=== PATIENT | female | born 1960 | race Caucasian/White ===

== ENCOUNTER → 2018-06-30 08:34 | Outpatient (CLI) | payer BC, SELFPAY ==
[2018-06-30 12:54] LABS: Absolute Lymphocyte Count 1.46 X10^3/ul (0.83-4.51); Absolute Neutrophil Count 2.5 X10^3/uL (2.0-7.7); Basophil# 0.03 X10^3/uL; Basophil% 0.6 % (0-1); Eosinophil# 0.34 X10^3/uL; Eosinophils% 6.5 % (0-5); Hematocrit 49.3 % (37-47); Hemoglobin 15.9 g/dl (12.0-15.0); Lymphocyte # 1.46 X10^3/ul (4.0); Lymphocyte % 27.9 % (19-41); Mean Corp Hgb Conc 32.3 g/gl (32-36); Mean Corpuscular Hgb 30.5 pg (27.0-32.0); Mean Corpuscular Volume 94.4 fL (81-99); Mean Platelet Vol. 11.5 fl (6.2-12.0); Monocyte# 0.91 X10^3/uL; Monocyte% 17.4 % (0-10); Neutrophil # 2.47 X10^3/uL (2.7-7.7); Platelet Count 184 K/mm3 (150-450); RBC Distribution Width CV 14.3 % (11.6-14.6); RBC Distribution Width SD 48.7 fl (35.1-43.9); Red Blood Count 5.22 M/mm3 (4.2-5.4); White Blood Count 5.2 K/mm3 (4.4-11.0)
[2018-06-30 12:56] LABS: POSITIVE COUNT NO; POSITIVE DIFFERENTIAL NO; POSITIVE MORPHOLOGY NO
[2018-06-30 13:38] LABS: ALB/GLOB Ratio 1.2 RATIO (0.9-2.4); AST(SGOT) 19 U/L (15-37); Alanine Aminotransfer ALT/SGPT 27 U/L (13-56); Albumin, Serum 3.6 g/dL (3.2-5.0); Alkaline Phosphatase 149 U/L (45-117); Anion Gap 10 (5-15); BUN 14 mg/dL (7-18); BUN/Creat Ratio 22.2 RATIO (10-20); Calcium,Total 8.8 mg/dL (8.5-10.1); Chloride 107 mmol/L (98-107); Cholesterol 158 mg/dL (200); Creatinine, Serum 0.63 mg/dL (0.55-1.02); EST Glomerular Filtration Rate 102 mL/min (>60); Est Glom Filt Rate - Afr Amer 124 mL/min (>60); Glucose 84 mg/dL (74-106); High Density Lipoprotein 39 mg/dL; Protein, Total 6.6 g/dL (6.4-8.2); Sodium Level 140 mmol/L (136-145); Thyroid Stim Hormone (TSH) 1.32 uIU/mL (0.358-3.74); Triglycerides 181 mg/dL; Very Low Density Lipoprotein 36 mg/dL (5-40)
== END ==
PROVIDERS: Family Provider Family Medicine; PCP Family Medicine; Visit Provider Family Medicine
DX: I25.10 Atherosclerotic heart disease of native coronary artery without angina pectoris (principal); E78.5 Hyperlipidemia, unspecified; I10 Essential (primary) hypertension
CPT/HCPCS: 36415; 80053; 80061; 84443; 85025

== ENCOUNTER → 2019-01-23 10:52 | Outpatient (CLI) | payer BC, SELFPAY ==
[2016-02-05 17:40] VITALS: BMI 26.4
[2019-01-23 12:44] LABS: Absolute Lymphocyte Count 2.16 X10^3/uL (0.83-4.51); Basophil# 0.03 X10^3/uL; Basophil% 0.4 % (0-1); Eosinophil# 0.22 X10^3/uL; Eosinophils% 2.7 % (0-5); Hemoglobin 16.3 g/dL (12.0-15.0); Lymphocyte # 2.16 X10^3/ul (4.0); Lymphocyte % 26.3 % (19-41); Mean Corp Hgb Conc 32.6 g/dL (32-36); Mean Corpuscular Hgb 30.7 pg (27.0-32.0); Mean Corpuscular Volume 94.2 fL (81-99); Mean Platelet Vol. 11.1 fl (6.2-12.0); Monocyte% 9.8 % (0-10); NRBC Flagged by Analyzer 0 % (0-5); Neutrophil # 4.95 X10^3/uL (2.7-7.7); Neutrophil % 60.3 % (47-70); Platelet Count 220 K/mm3 (150-450); RBC Distribution Width CV 14.2 % (11.6-14.6); RBC Distribution Width SD 49.5 fl (35.1-43.9); Red Blood Count 5.31 M/mm3 (4.2-5.4); White Blood Count 8.2 K/mm3 (4.4-11.0)
[2019-01-23 13:09] LABS: Anion Gap 3 (5-15); BUN 14 mg/dL (7-18); BUN/Creat Ratio 19.8 RATIO (10-20); Calcium,Total 9.8 mg/dL (8.5-10.1); Chloride 109 mmol/L (98-107); Creatinine, Serum 0.71 mg/dL (0.55-1.02); EST Glomerular Filtration Rate 90 mL/min (>60); Est Glom Filt Rate - Afr Amer 108 mL/min (>60); Glucose 93 mg/dL (74-106); Potassium 4.3 mmol/L (3.5-5.1); Sodium Level 141 mmol/L (136-145); T4 Free Direct 0.84 ng/dL (0.76-1.46); Thyroid Stim Hormone (TSH) 1.03 uIU/mL (0.358-3.74)
== END ==
PROVIDERS: Family Provider Family Medicine; PCP Family Medicine; Visit Provider Family Medicine
DX: I25.10 Atherosclerotic heart disease of native coronary artery without angina pectoris (principal); E78.5 Hyperlipidemia, unspecified; Z78.9 Other specified health status
CPT/HCPCS: 36415; 80048; 84439; 84443; 85025

== ENCOUNTER → 2019-03-23 05:50 | Outpatient (CLI) | payer BC, SELFPAY ==
[2019-03-04 12:38] VITALS: BMI 25.7
--- NOTE | 2019-03-23 12:56 | STRESSREP_ITS ---
Stress Test Report Exercise myocardial perfusion stress test. 58-year-old lady with a history of previous coronary artery stenting. Medications include aspirin, Plavix, rosuvastatin, metoprolol. Stress testing. Resting EKG demonstrates normal sinus rhythm with a rate of 68 bpm normal intervals are noted resting blood pressures 148/92 mmHg. Patient exercised according to the regular Kendell protocol for total duration of 7 minutes. The maximum heart rate attained was 141 bpm which was 88% of maximum predicted heart rate. Patient completed 1 minute into stage III of the Kendell protocol. The test was terminated due to the target heart rate being achieved as well as dyspnea. The resting blood pressure was 148/92 with a peak blood pressure 174/90 mmHg rate pressure product was 22,400. Patient maintained sinus rhythm throughout the recording. At rest there were no ST or T wave changes noted suggest ischemia peak exercise upsloping ST changes were noted with no meet the criteria for ischemia. Myocardial perfusion protocol. 11.0 mCi of technetium 99m sestamibi was injected at rest. The patient exercised according to regular Kendell protocol for 7 minutes attaining 88% of maximum predicted heart rate at peak exercise 33.0 mCi of technetium 99m sestamibi was injected stress images were obtained stress and rest images were reconstructed in comparing the short axis vertical long horizontal long axis. Gated images were also obtained Perfusion SPECT analysis: Review of the stress images demonstrate normal uptake of tracer noted in all ar eas of myocardium the resting images similar demonstrate normal uptake of tracer noted in all areas of myocardium. No reversibility is noted suggest ischemia no previous infarct is noted. Gated SPECT analysis: The gated ejection fraction is noted to be 74%. Conclusion: Normal exercise myocardial perfusion stress test at a moderate workload. Preserved ejection fraction. No arrhythmias or angina noted.
== END ==
PROVIDERS: Family Provider Family Medicine; PCP Family Medicine; Referring Provider Internal Medicine Cardiovascular Disease; Visit Provider Internal Medicine Cardiovascular Disease
DX: R07.9 Chest pain, unspecified (principal); Z95.5 Presence of coronary angioplasty implant and graft
CPT/HCPCS: 78452; 93017; A9500; A4216

== ENCOUNTER 2019-09-04 17:10 | Emergency (ER) | payer BC, SELFPAY ==
[2019-03-04 12:38] VITALS: BMI 25.7
[2019-09-04 17:11] VITALS: BP 155/100; PULSE 89; RESP 16; TEMP 36.6; O2SAT 97; BMI 25.7
--- NOTE | 2019-09-04 17:29 | EKG12_ITS ---
Test Reason : SYNCOPE Blood Pressure : / mmHG Vent. Rate : 073 BPM Atrial Rate : 073 BPM P-R Int : 156 ms QRS Dur : 098 ms QT Int : 386 ms P-R-T Axes : 023 053 002 degrees QTc Int : 425 ms Normal sinus rhythm with sinus arrhythmia Possible Inferior infarct , age undetermined Abnormal ECG Confirmed by JULIAN BA, BELEM ([id number]), desk editor RONEL REARDON ([id number]) on 09/08/2019 3:17:14 PM Referred By: ADAL Confirmed By:HOLLY JORDAN MD
--- NOTE | 2019-09-04 17:29 | CT_ITS ---
STUDY: CT BRAIN WITHOUT CONTRAST REASON FOR EXAM: Female, 59 years old. SYNCOPE, HIT HEAD AND NECK ON SATURDAY PAIN SINCE. Hx of heart stents. RADIATION DOSAGE (If Supplied By Facility): CTDIvol = ( 44.99 ) mGy, DLP = ( 762.36 ) mGycm TECHNIQUE: Transaxial CT imaging of the brain was performed without administration of intravenous contrast material. Individualized dose optimization techniques were used for this CT. COMPARISON: No relevant priors. FINDINGS: Normal soft tissue structures. Normal calvarium. Normal size ventricles and extra-axial spaces for the patient''s age. Normal white matter tracts of the cerebral hemispheres. Normal basal ganglia and thalami. Normal brainstem. Normal cerebellum. There is no intracranial hemorrhage. There are no findings of an acute ischemic infarction. Normal visualized paranasal sinuses. CT/Brain/Head without Contrast IMPRESSION: Normal unenhanced CT scan of the brain. Electronically Signed: Moni Winslow MD at 18:06 EDT , Service support ,
--- NOTE | 2019-09-04 17:30 | CT_ITS ---
STUDY: CT CERVICAL SPINE WITHOUT CONTRAST REASON FOR EXAM: Female, 59 years old. SYNCOPE, HIT HEAD AND NECK ON SATURDAY PAIN SINCE. Hx of heart stents. RADIATION DOSAGE (If Supplied By Facility): CTDIvol = ( 18.67 ) mGy, DLP = ( 416.13 ) mGycm TECHNIQUE: High resolution transaxial imaging was performed without contrast material. Sagittal and coronal images were reconstructed. Individualized dose optimization techniques were used for this CT. COMPARISON: None FINDINGS: Normal craniovertebral junction. Normal anterior atlantoaxial articulation. Normal odontoid process. There is reversal of the normal cervical lordosis. Normal vertebral bodies and posterior osseous elements. C2-3: Normal endplates. Normal disc height and morphology. Normal central canal and intervertebral neuroforamina. C3-4: Minor degenerative disc and joint changes without central stenosis or foraminal narrowing. C4-5: Mild disc narrowing and uncovertebral arthrosis. Negative for central stenosis. Mild bilateral foraminal narrowing. C5-6: Degenerative disc narrowing and uncovertebral arthrosis. Mild spinal stenosis and bilateral moderate foraminal narrowing. C6-7: Mild degenerative disc and joint changes without central stenosis or foraminal narrowing. C7-T1: Mild bilateral facet arthrosis without central stenosis or foraminal narrowing. Normal visualized soft tissue structures. CT/Spine Cervical without Contras IMPRESSION: Mild reversal of the usual cervical lordosis with otherwise normal alignment. Negative for acute fracture of the cervical spine. Degenerative disc and joint changes as stated above. Electronically Signed: Moni Winslow MD at 18:12 EDT , Service support ,
[2019-09-04 17:54] LABS: Absolute Lymphocyte Count 2.42 X10^3/uL (0.83-4.51); Absolute Neutrophil Count 4.9 X10^3/uL (2.0-7.7); Basophil# 0.04 X10^3/uL; Basophil% 0.5 % (0-1); Eosinophil# 0.13 X10^3/uL; Eosinophils% 1.6 % (0-5); Hematocrit 47.2 % (37-47); Hemoglobin 15.9 g/dL (12.0-15.0); Lymphocyte # 2.42 X10^3/ul (4.0); Lymphocyte % 29.5 % (19-41); Mean Corp Hgb Conc 33.7 g/dL (32-36); Mean Corpuscular Hgb 31.1 pg (27.0-32.0); Mean Corpuscular Volume 92.4 fL (81-99); Mean Platelet Vol. 10.6 fl (6.2-12.0); Monocyte# 0.71 X10^3/uL; Monocyte% 8.7 % (0-10); NRBC Flagged by Analyzer 0 % (0-5); Neutrophil # 4.86 X10^3/uL (2.7-7.7); Neutrophil % 59.2 % (47-70); Platelet Count 218 K/mm3 (150-450); RBC Distribution Width CV 14.1 % (11.6-14.6); RBC Distribution Width SD 47.6 fl (35.1-43.9); Red Blood Count 5.11 M/mm3 (4.2-5.4); White Blood Count 8.2 K/mm3 (4.4-11.0)
[2019-09-04 18:13] LABS: ALB/GLOB Ratio 1.4 RATIO (0.9-2.4); AST(SGOT) 19 U/L (15-37); Alanine Aminotransfer ALT/SGPT 26 U/L (13-56); Albumin, Serum 3.9 g/dL (3.2-5.0); Alkaline Phosphatase 157 U/L (45-117); Anion Gap 6 (5-15); BUN 15 mg/dL (7-18); BUN/Creat Ratio 22.7 RATIO (10-20); Calcium,Total 9.9 mg/dL (8.5-10.1); Chloride 110 mmol/L (98-107); Creatinine, Serum 0.66 mg/dL (0.55-1.02); EST Glomerular Filtration Rate 97 mL/min (>60); Est Glom Filt Rate - Afr Amer 117 mL/min (>60); Globulin 2.8 g/dL (2.2-4.2); Glucose 91 mg/dL (74-106); Potassium 3.8 mmol/L (3.5-5.1); Protein, Total 6.7 g/dL (6.4-8.2); Sodium Level 142 mmol/L (136-145)
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
[2019-09-04] MEDS: Diphth,Pertuss(Acell),Tet Vac 0.5 ML Vial IM (18:54)
[2019-09-04 19:01] VITALS: BP 170/94; PULSE 75; RESP 18
== END 2019-09-04 19:11 | disposition home or self-care (01) ==
LOC: ED 18:37
PROVIDERS: Emergency Provider Emergency Medicine; PCP Family Medicine
DX: R55 Syncope and collapse (principal); S00.83XA Contusion of other part of head, initial encounter; S00.81XA Abrasion of other part of head, initial encounter; W22.8XXA Striking against or struck by other objects, initial encounter; Y93.9 Activity, unspecified; Y92.9 Unspecified place or not applicable; I10 Essential (primary) hypertension; I25.2 Old myocardial infarction; E78.5 Hyperlipidemia, unspecified; Z79.82 Long term (current) use of aspirin; Z79.899 Other long term (current) drug therapy; F17.200 Nicotine dependence, unspecified, uncomplicated
CPT/HCPCS: 70450; 72125; 80053; 84484; 85025; 90471; 90715; 93005; 99284; J7030; A4216

== ENCOUNTER → 2021-03-31 09:03 | Outpatient (CLI) | payer BC, SELFPAY ==
--- NOTE | 2021-03-31 09:05 | BI_ITS ---
MAMMOGRAPHY - BILATERAL SCREENING REASON FOR EXAM: Female, 60 years old. Routine annual screening examination. PERTINENT HISTORY: Sister with breast cancer. Mother with breast cancer. TECHNIQUE: Digital bilateral breast brooke (3D mammographic acquisition) in the CC and MLO projections. 2-D mediolateral oblique (MLO) and craniocaudad (CC) views of both breasts were obtained. CAD: Full Field Digital Mammography with Computer Added Detection was performed. COMPARISON: Comparison is made with prior study dated 01/05/2016 and 01/03/2015. FINDINGS: Breast Composition: There are scattered areas of fibroglandular density. There is a new 1.6 cm x 1.3 cm irregular nodular density in the deep central medial aspect of the left breast. Correlation with ultrasound is recommended. No other significant abnormalities are identified. BI/SCRN MAMM (CAD)W/BROOKE BILAT IMPRESSION: New 1.6 cm x 1.3 cm irregular nodular density in the deep central medial aspect of the left breast. Correlation with ultrasound is recommended. ASSESSMENT CATEGORY: BIRADS Category 0: Incomplete. Need additional imaging evaluation. A letter regarding these results will be sent to the patient by the facility within 30 days. Approximately 10% of breast cancers are not detected by mammography. A normal mammogram should not delay biopsy of a clinically suspicious abnormality. [id number] Electronically Signed: Gerardo Barrett MD at 10:07 EST , Service support ,
== END ==
PROVIDERS: PCP Family Medicine; Referring Provider Family Medicine; Visit Provider Family Medicine
DX: Z12.31 Encounter for screening mammogram for malignant neoplasm of breast (principal)
CPT/HCPCS: 77063; 77067

== ENCOUNTER → 2021-04-06 15:15 | Outpatient (CLI) | payer BC, SELFPAY ==
--- NOTE | 2021-04-06 15:19 | US_ITS ---
STUDY: ULTRASOUND BREAST - LEFT REASON FOR EXAM: Female, 60 years old. Abnormal left mammogram. TECHNIQUE: Axial and longitudinal images of the LEFT breast were performed with a high resolution ultrasound transducer. # OF IMAGES: 26 COMPARISON: Comparison is made with prior mammogram dated 03/31/2021. FINDINGS: LEFT Breast: The mammographic abnormality corresponds to a 1.5 cm x 1.4 cm x 1.4 cm irregular hypoechoic solid nodule with increased vascularity at the 9 o''clock position of the breast at 3 cm from the nipple. Biopsy is recommended. US/Breast Limited Unilateral IMPRESSION: 1.5 cm x 1.4 cm x 1.4 cm irregular hypoechoic solid nodule at the 9 o''clock position approximately 3 cm from nipple. Increased vascularity is seen. Biopsy recommended. ASSESSMENT CATEGORY: BIRADS Category 5: Highly Suggestive of Malignancy - Appropriate Action Should Be Taken. A letter regarding these results will be sent to the patient by the facility within 30 days. Electronically Signed: Gerardo Barrett MD at 15:56 EST , Service support ,
== END ==
PROVIDERS: PCP Family Medicine; Referring Provider Family Medicine; Visit Provider Family Medicine
DX: N63.20 Unspecified lump in the left breast, unspecified quadrant (principal)
CPT/HCPCS: 76642

== ENCOUNTER 2021-04-25 09:24 | Outpatient (CLI) | payer BC, SELFPAY ==
--- NOTE | 2021-04-24 | IMM_PTH ---
PATIENT: PATRICIO STREETER LOC: [facility] U#:[id number] AGE/SX: 60/F ROOM: RE04/25/[address]: Dr. Jaylen Fan MD : 1960 BED: DIS: 04/25/2021 SPEC #: [id number] RECD: 04/25/21 13:33 STATUS: ABDULAZIZ REQ #: [id number] SHARATH: 04/24/21 00:[address]: Jaylen Fan DEPT: IMMUNOHISTOCHEMISTRY RECD BY: Kymberly Miller ENTERED: 04/25/21 13:34 SP TYPE: IMMUNO OTHR DR: Dr. Luis Alberto Zayas MD Tissues: Left breast, NOS Procedures: CALPONIN-1 (add) CK5-6 (add) CK8 (add) E-CAD (add) HER2 MOMO (add) KI-67 (add) P53 (add) TN (add) P40 (add) ER (initial) PHYSICIAN & INSTITUTION [address] [address] SPECIMEN INFORMATION: Tissue Source: Left breast Clinical Info: Left breast mass Specimen Number: [id number] CPT code: 50917, 10878 x6, 27482 x3 METHODOLOGY: Deparaffinized sections of prefer/formalin-fixed tissue or PAP/DQ stained slides are incubated with monoclonal/polyclonal antibodies/oligonucleotide probes. Localization is made via biotin free immunoperoxidase method. Appropriate controls are performed and reacted as expected. Results on target cell population are indicated in the following table: RESULTS: ANTIBODY / CLONE RESULT E-Cad (ECH-6) positive CK8 (39zvgbZ51) positive Calponin-1 (OE392W) negative CK5-6 (D5 & 1684) negative P40 (BC28) negative P53 (DO-7) positive, low Ki-67 (30-9) positive, low (~12%) MORPHOMETRIC ANALYSIS ER (clone 6F11) >95%, strong intensity TN (clone 16/1E2) 57%, moderate intensity Her-2Neu (clone CB11) 0 The prognostic test for HER2 is performed on formalin-fixed paraffin embedded tissue. A 3+ (positive) staining pattern is defined as intense, homogeneous, complete, circumferential membranous staining in >10% of contiguous tumor cells. A similar weak (2+) staining pattern is interpreted as equivocal. FRANCINE follow-up testing is recommended for all equivocal cases. Positivity/negativity for ER/TN is reported if > or < 1% of the tumor cells are immuno- reactive, respectively. The ASCO/CAP criteria is used for scoring. Reference: Journal of Clinical Oncology, 2013; 31:0884-2469 & 2010; 16:5035-4923. Duration of fixation: 10.5 Hrs; Sample Adequate: Yes. These assays have not been validated on decalcified tissues. Results should be interpreted with caution given the likelihood of false negativity on decalcified specimens. These tests were developed and their performance characteristics determined by [facility]. They may not have been cleared or approved by the U.S. Food and Drug Administration. The FDA has determined that such clearance or approval is not necessary. The above immunohistochemical/dualISH markers are ordered and reviewed by the Pathologist. INTERPRETATION: Left breast, core biopsy: Invasive ductal carcinoma, nuclear grade 2. Positive for estrogen receptors (favorable prognostic indicator). Positive for progesterone receptors (favorable prognostic indicator). Negative for overexpression of VTN2ays. SJ:shakir 04/26/2021
--- NOTE | 2021-04-24 09:00 | BRBX_PTH ---
PATIENT: PATRICIO STREETER LOC: [facility] U#:[id number] AGE/SX: 60/F ROOM: RE04/25/[address]: Dr. Jaylen Fan MD : 1960 BED: DIS: 04/25/2021 SPEC #: [id number] RECD: 04/24/21 11:14 STATUS: ABDULAZIZ FORD #: [id number] SHARATH: 04/24/21 09:[address]: Jaylen Fan DEPT: SURGICAL PATHOLOGY RECD BY: Ana Maria Ivey ENTERED: 04/25/21 09:42 SP TYPE: BREAST BX OTHR DR: Dr. Luis Alberto Zayas MD Tissues: Left breast, NOS Procedures: Surgery Specimen Level IV HEADER OPERATION: Left breast biopsy PRE-OP DIAGNOSIS: Left breast mass TISSUE SUBMITTED: Left breast tissue MICROSCOPIC DIAGNOSIS Left breast, core biopsy: Invasive ductal carcinoma, nuclear grade 2 (1.4 cm in greatest length). See comment. SJ:shakir 04/25/2021 COMMENT Immunohistochemistry ([id number]) supports the above diagnosis. ER/NJ/Olb8nll studies are being performed on sections of tumor and the results from this study will be reported separately ([id number]). Case has been reviewed in consultation with Dr. Hayes who concurs with the above diagnosis. IDC:AM MICROSCOPIC DESCRIPTION Slides are reviewed. GROSS DESCRIPTION Received in fixative is one container labeled with the patient's name and designated left breast. The specimen consists of multiple elongated fragments of berry-yellow fibroadipose tissue that in aggregate measure 1.5 x 0.5 x 0.1 cm. The entire specimen is submitted in one cassette. / JEREMY:shakir 04/24/21 TC:0 CPT: 99688
== END 2021-04-25 23:59 | disposition short-term general hospital (02) ==
LOC: LABSPEC 09:28
PROVIDERS: PCP Family Medicine; Referring Provider Surgery; Visit Provider Surgery
DX: C50.919 Malignant neoplasm of unspecified site of unspecified female breast (principal)
CPT/HCPCS: 88305; 88341; 88342

== ENCOUNTER 2021-05-11 07:17 | Day surgery (SDC) | payer BC, SELFPAY ==
--- NOTE | 2021-05-05 09:37 | EKG12_ITS ---
Test Reason : PRE OP Blood Pressure : / mmHG Vent. Rate : 071 BPM Atrial Rate : 071 BPM P-R Int : 138 ms QRS Dur : 098 ms QT Int : 366 ms P-R-T Axes : 042 085 009 degrees QTc Int : 397 ms Normal sinus rhythm Normal ECG Confirmed by CHARLES BA, DAVID ([id number]), senior technical editor RASHEEDA FARAH ([id number]) on 05/08/2021 11:33:48 AM Referred By: SEFERINO Confirmed By:DAVID SOTO MD
[2021-05-05 10:36] LABS: Hematocrit 49.7 % (37-47); Hemoglobin 16.7 g/dL (12.0-15.0); Mean Corp Hgb Conc 33.6 g/dL (32-36); Mean Corpuscular Hgb 31.3 pg (27.0-32.0); Mean Corpuscular Volume 93.2 fL (81-99); Mean Platelet Vol. 11.6 fl (6.2-12.0); Platelet Count 227 K/mm3 (150-450); RBC Distribution Width CV 13.7 % (11.6-14.6); RBC Distribution Width SD 46.2 fl (35.1-43.9); Red Blood Count 5.33 M/mm3 (4.2-5.4); White Blood Count 7.2 K/mm3 (4.4-11.0)
[2021-05-05 11:28] LABS: Anion Gap 7 (5-15); BUN 19 mg/dL (7-18); BUN/Creat Ratio 28.2 RATIO (10-20); Chloride 106 mmol/L (98-107); Creatinine, Serum 0.67 mg/dL (0.55-1.02); EST Glomerular Filtration Rate 94 mL/min (>60); Est Glom Filt Rate - Afr Amer 114 mL/min (>60); Glucose 81 mg/dL (74-106); Potassium 3.8 mmol/L (3.5-5.1); Sodium Level 140 mmol/L (136-145)
[2021-05-11] VITALS (8 sets, daily range): BP systolic 130–162; BP diastolic 82–107; PULSE 62–81; RESP 14–18; TEMP 36.1–36.6; O2SAT 94–100; BMI 24.9
--- NOTE | 2021-05-11 | IMM_PTH ---
PATIENT: PATRICIO STREETER [place] [facility] [id number] AGE/SX: 60/F ROOM: RE05/11/[address]: Dr. Jeancarlos Garcia MD : 1960 BED: DIS: 05/11/2021 SPEC #: [id number] RECD: 05/16/21 14:11 STATUS: ABDULAZIZ REQ #: [id number] SHARATH: 05/11/21 00:[address]: Jeancarlos Garcia DEPT: IMMUNOHISTOCHEMISTRY RECD BY: Kymberly Miller ENTERED: 05/16/21 14:12 SP TYPE: IMMUNO OTHR DR: MD Dr. Luis Alberto Clarke MD Tissues: A - Axillary lymph node, NOS Procedures: CK7 (add) Pankeratin (initial) PHYSICIAN & INSTITUTION [place] [address] SPECIMEN INFORMATION: Tissue Source: A ? Left axillary sentinel lymph node Clinical Info: Malignant neoplasm of upper outer quadrant left breast, ER positive Specimen Number: [id number] CPT code: 37008, 42565 METHODOLOGY: Deparaffinized sections of prefer/formalin-fixed tissue or PAP/DQ stained slides are incubated with monoclonal/polyclonal antibodies/oligonucleotide probes. Localization is made via biotin free immunoperoxidase method. Appropriate controls are performed and reacted as expected. Results on target cell population are indicated in the following table: RESULTS: ANTIBODY / CLONE RESULT Block A AE1-3 (AE1/AE3/PCK26) negative CK7 (OV-TL12/30) negative These tests were developed and their performance characteristics determined by [facility]. They may not have been cleared or approved by the U.S. Food and Drug Administration. The FDA has determined that such clearance or approval is not necessary. The above immunohistochemical/dualISH markers are ordered and reviewed by the Pathologist. INTERPRETATION: A. Left axillary sentinel lymph node, biopsy: One out of one lymph node negative for carcinoma. AM:shakir 05/17/2021
--- NOTE | 2021-05-11 | AXNB_PTH ---
PATIENT: PATRICIO STREETER LOC: [facility] [place] U#:[id number] AGE/SX: 60/F ROOM: RE05/11/[address]: Dr. Jeancarlos Garcia MD : 1960 BED: DIS: 05/11/2021 SPEC #: [id number] RECD: 05/11/21 10:54 STATUS: ABDULAZIZ REYvonne #: [id number] SHARATH: 05/11/21 00:[address]: Jeancarlos Garcia DEPT: SURGICAL PATHOLOGY RECD BY: Kymberly Miller ENTERED: 05/11/21 11:14 SP TYPE: AX NODE BX OTHR DR: MD Dr. 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 [place] lymph node left breast, FS, B ? Left breast mass FROZEN SECTION DIAGNOSIS A. Left axillary sentinel lymph node, biopsy: One out of one lymph node negative for carcinoma. AM: 05/11/2021 MICROSCOPIC DIAGNOSIS A. Left axillary sentinel lymph node, biopsy: One out of one lymph node negative for carcinoma. See comment. B. Left breast, lumpectomy: Invasive ductal carcinoma. Ductal carcinoma in situ. See cancer summary below. AM: 05/16/2021 COMMENT A. Immunohistochemistry ([id number]) supports the above diagnosis. B. BREAST CANCER SUMMARY Procedure: Excision with wire guidance Specimen: Type: Partial breast Size: 5 x 4 x 2.5 cm Laterality: Left breast Invasive Tumor: Tumor Site: No specified Tumor Size: 1.7 x 1.5 x 1.2 cm Histologic type: Invasive ductal carcinoma. Focality: Single focus of carcinoma Histologic grade (Almont grade): Glandular/tubular differentiation score: 3 Nuclear pleomorphism score: 2 Mitotic count score: 1 Overall grade: 2 (score of 5) Ductal Carcinoma In Situ: Present Estimated quantification: 5% Number of blocks: 5 of 12 blocks Architectural pattern: Cribriform and comedo Nuclear grade: 3 Necrosis: Present Lobular Carcinoma In Situ: Not present Tumor extension: Skin: No skin present. Nipple: No nipple present. Skeletal muscle: No skeletal muscle present. Margins: Distance of invasive carcinoma from closest margin: 5 mm from medial margin (microscopically measured) and 7 mm from next closest (anterior) margin. Distance of in situ carcinoma from closest margin: 1.5 mm from posterior margin. Lymph Nodes: Number of sentinel lymph nodes examined: 1 Total number of lymph nodes examined: 1 No evidence of macrometastases, micrometastases or isolated tumor cells, See specimen ?A.? Treatment Effect: Unknown Lymphvascular invasion: Not identified Additional Pathologic Findings: Mild fibrocystic change. Ancillary Studies: Previously performed on same tumor ([id number]) ER: positive (>95%, strong intensity) IL: positive (57%, moderate intensity) Dzw5fty: negative (0) Ki67: positive (approximately 12%) Microcalcifications: Present in invasive carcinoma and ductal carcinoma in situ. Clinical History: Mass of breast PATHOLOGIC STAGE: pT1c N0(sn) Mx The above summary is in compliance with [employer] [place] [employer] (CAP) Cancer Protocol Checklist and [place] Joint Committee on Cancer (AJCC) Staging Manual, 8th Ed. This case was reviewed and diagnosis discussed with Dr. Murrieta on 11/22/2021. Case has been reviewed in consultation with Dr. Villarreal who concurs with the above diagnosis. IDC:[id number] MICROSCOPIC DESCRIPTION Slides are reviewed. GROSS DESCRIPTION A - Received fresh for frozen section consultation labeled with the patient's name is a specimen designated sentinel lymph node left breast. The specimen consists of a single ovoid fragment of blue-berry soft tissue nodule measuring 1 x 0.8 x 0.4 cm. The metallic clip is removed and the specimen is submitted in its entirety for frozen section consultation in one block. / AM:shakir 05/11/2021 B - Received fresh for OR labeled with the patient's name is a specimen designated ?left breast mass.? The specimen consists of a lumpectomy specimen measuring 5 x 4 x 2.5 cm and weighing 18 gm. The specimen is wire-guided and differentially inked as follows: anterior - yellow, posterior - green, superior - blue, inferior - black, medial - red and lateral - orange. Serial sections reveal a centrally located firm, berry-white lesion measuring 1.7 x 1.5 x 1.2 cm. The specimen is located 0.7 cm from closest (anterior) margin of excision. The proximity of the lesion to the closest margin has been conveyed to the surgeon intraoperatively. The remainder of the cut surface of the lesion have yellow to white streaks. No other mass lesions are identified. The specimen is totally submitted in 12 cassettes as follows: 1 & 2 - perpendicular inked margins, 3-6 - mass, 7-12 - remainder of the breast tissue. Note, specimen is submitted after additional fixation. / AM:shakir 05/12/2021 TC:0 CPT: 76749, 04966, 03930 ADDENDUM ADDENDUM ADDENDUM ADDENDUM ADDENDUM ADDENDUM ADDENDUM ADDENDUM 08/08/2021 15:17 ADDENDUM 08/08/2021 15:17 ADDENDUM 08/08/2021 15:17 ADDENDUM 08/08/2021 15:17 ADDENDUM 08/08/2021 15:17 An order for Oncotype testing was received from Dr. Banda. This necessitated case review, block and slide selection by pathologist at [facility]. Breast Cancer Recurrence Score = 19 Results of the complete Oncotype testing ([employer] report) are viewable in EMR under: Reports - Pathology - Lab Pathology Report, Scanned.
--- NOTE | 2021-05-11 08:00 | NM_ITS ---
PROCEDURE: NUCLEAR MEDICINE Injection Bryant Node - LEFT breast(s). REASON FOR EXAM: Female, 60 years old. Left breast cancer. TECHNIQUE: Bryant node localization using radionuclide methods of the LEFT breast(s) was performed following subcutaneous administration of 1.1 mCi of of sulfur colloid Tc-99m. FINDINGS: 1.1 mCi of technetium labeled sulfur colloid was injected subcutaneously in 4 equal aliquots in the left periareolar region for sentinel node imaging. NM/Lymph Node Injection Only IMPRESSION: 1.1 mCi of things labeled sulfur colloid was injected subcutaneously in 4 equal aliquots in the left periareolar region for sentinel node imaging. Electronically Signed: Gerardo Barrett MD at 8:54 EST , Service support ,
[2021-05-11] MEDS: Lactated Ringers 1,000 ML 15 ML IV (08:18)
--- NOTE | 2021-05-11 09:40 | HP.PCM_ITS ---
History and Physical Date of Admission: 05/11/21 Intake Intake Visit Reasons: F/U BREAST BX 04/24/21 Chief Complaint: discuss left breast path Pad Machine Offbearer Required: No Is patient in pain?: No Allergies simvastatin Adverse Reaction (Verified 04/28/21 13:27) fatigue Medications aspirin 81 mg PO DAILY@0800 02/05/16 [History Confirmed 04/28/21] clopidogrel 75 mg PO DAILY 02/05/16 [History Confirmed 04/28/21] coenzyme Q10 100 mg capsule 100 mg PO DAILY 03/04/19 [History Confirmed 04/28/21] metoprolol tartrate 25 mg tablet 25 mg PO DAILY tab 03/04/19 [History Confirmed 04/28/21] rosuvastatin 5 mg tablet 5 mg PO DAILY #90 tab 10/21/20 [Rx Confirmed 04/28/21] Is last menstrual period known: No Post menopausal: Yes Patient : No PFSH Medical History Atherosclerosis of coronary artery of [place] heart without angina pectoris History of ST elevation myocardial infarction (STEMI) (05/12/10) Hyperlipidemia Nicotine dependence Old inferior wall myocardial infarction Right bundle branch block Tobacco abuse Surgical History History of coronary artery stent placement (05/12/10) History of left breast biopsy (~04/2021) Family History Mother CAD (coronary artery disease) Sister Hypertension Social History Smoking Status: Current every day smoker HPI HPI HPI: PATRICIO STREETER, is a 60 F who presents to the office today for left breast cancer. ROS General General: Yes fatigue; No weight change, appetite, colon cancer, breast cancer or weakness HEENT HEENT: No difficulty swallowing, eye injury, eye surgery, swollen glands or hoarseness Endo Endocrine: No thyroid disease, diabetes mellitus, thyroid cancer, Hair loss, heat intolerance or cold intolerance Skin Skin: No rash or changing moles Breast Breast: No left breast lump, right breast lump, nipple discharge, breast pain, abnormal mammogram, abnormal US or breast enlargement Musc Musculoskeletal: No back problems, arthritis, rheumatoid arthritis, gout or joint pain Cardio Cardiovascular: Yes heart disease, heart attack and heart stent; No murmur, pacemaker, atrial fibrillation, high blood pressure, palpitations, shortness of breat with exertion or chest pain Psych Psychiatric: Yes anxiety; No depression or hearing voices Resp Respiratory: No shortness of breath, No sleep apnea, No cough, No COPD, No asthma, No emphysema and No wheezing Gastro Gastrointestinal: No abdominal pain, No nausea or vomiting, No diarrhea, No constipation, No blood in stool, No acid reflux, No hemorrhoids, No ulcers, No gallbladder problem and No black,tarry stools Gómez Hematologic: No blood thinners, No blood disorders, No bleeding, No anemia and No blood clots Neuro Neurologic: No system reviewed and no additional complaints, except as documented, No as per HPI, No abnormal gait, No abnormal hearing, No abnormal movements, No abnormal speech, No behavioral changes, No burning sensations, No confusion, No convulsions, No disequilibrium, No dizziness, No localized weaknes s, No frequent falls, No headache(s), No lack of coordination, No loss of vision, No memory loss, No numbness, No other visual disturbances, No radicular pain, No restless legs, No sensory deficit, No syncope, No tingling, No tremor(s), No weakness and No other Exam Const General: cooperative Orientation: alert and oriented x3 [facility] Head: normal to inspection Neck Neck: normal visual inspection and full ROM Chest Chest palpation & inspection: normal inspection of the chest Resp Effort & Inspection: normal respiratory effort Auscultation: clear to auscultation bilaterally Cardio Rate: regular rate Rhythm: regular rhythm GI Inspection: non-distended Palpation: soft and nontender Skin General: no rashes or lesions noted Neuro General: patient alert and patient oriented x3 Extrem General: full ROM Psych Appearance: grossly normal Mental Status: mental status grossly normal Assessment and Plan Assessment and Plan (1) Breast cancer of upper-outer quadrant of left female breast: Status: Acute Qualifiers: Estrogen receptor status: positive Qualified Code(s): C50.412 - Malignant neoplasm of upper-outer quadrant of left female breast; Z17.0 - Estrogen receptor positive status [ER+] Plan - Dr. Jaylen Fan MD: The patient has left breast cancer diagnosed by ultrasound-guided biopsy. I discussed surgical options with her. I discussed ultrasound-guided wire localization with partial mastectomy and sentinel lymph node biopsy. I discussed the risks of the procedure including not limited to bleeding, infection, nerve injury, hematoma or seroma formation, need for further surgery for positive margins. Patient understands all the risks and is willing to proceed. I discussed postoperative care as well as radiation and need for oncology referral. Jaylen Fan MD Pager: [facility] [address] [place] [address], [address] [place] [address] Office: I have re-examined the patient. There are no clinical changes since date of exam.
[2021-05-11] MEDS: Cefazolin 2 GM in 0.9% Normal Saline 100 ML IV (10:03)
[2021-05-11] MEDS: 0.9% Normal Saline (Pres. free 10 ML Vial (10:20)
[2021-05-11] MEDS: Isosulfan Blue 1% 5 ML Vial (10:20)
--- NOTE | 2021-05-11 11:03 | BI_ITS ---
SURGICAL BREAST SPECIMEN RADIOGRAPH CLINICAL: Document presence of tissue clip marker in biopsy specimen. FINDINGS: Specimen shows presence of tissue clip marker. Electronically Signed: Gerardo Barrett MD at 12:43 EST , Service support , BI/Breast Biopsy Specimen
[2021-05-11] MEDS: Bupivacaine Mpf 0.5% 30 ML VIAL (11:19)
--- NOTE | 2021-05-11 12:07 | OP.PCM_ITS ---
Problems Associated Problem List Diagnoses (1) Breast cancer of upper-outer quadrant of left female breast: Report of Operation Date of Procedure: 05/11/21 Pre-Operative Diagnosis: Left breast cancer Post-Operative Diagnosis: Same Surgery/Procedure Performed:: 1. Ultrasound-guided left breast mass wire localization 2. Left breast partial mastectomy 3. Left axillary sentinel lymph node biopsy Specimen's removed: 1. Left breast mass 2. Left axillary lymph node Estimated Blood Loss (mL): 50 Description of Procedure: Patient was brought back to the operating room and general anesthesia was induced. The left breast was prepped and the ultrasound was used to localize the mass. Under ultrasound guidance a wire was placed in the left breast mass. Next 5 cc of Lymphazurin was injected under the nipple on the left side as well as 5 cc of saline as a chaser. The left breast was then massaged for 5 minutes. Next the left breast and axilla were prepped and draped in usual sterile fashion. An incision was made in the axilla and deepened to the fascia which was then incised. The left axilla was explored until a blue ly mph node was identified. It was dissected free and clipped and removed. It was checked outside the body and did contain radiotracer. There was no further radiotracer identified in the axilla no further blue contents. Hemostasis was obtained using clips and electrocautery. The axilla was packed with a wet sponge and the breast was addressed. An area in the medial breast was incised and flaps were created using electrocautery and the wire was delivered into the incision. Electrocautery dissection was used to excise the left breast cancer and it was sent for x-ray. X-ray revealed the clip and wire were removed as well as the mass. Frozen section revealed that the margins were adequate. Hemostasis was obtained using electrocautery and clips. The axillary incision was closed with interrupted 3-0 Vicryl sutures as well as a running 4-0 Monocryl. The breast was closed with interrupted 3-0 Vicryl sutures and a 4-0 Monocryl in a running fashion. Glue was applied to both incisions. Patient was then awoken and taken to PACU in stable condition and tolerated the procedure well. Admit VTE Documentation VTE Mechan Device Prophylaxis: SCD's
--- NOTE | 2021-05-11 12:21 | EX.PCM.DISCH ---
Discharge Instructions Procedure Breast Surgery Diet Discharge Diet: No restrictions Activity Discharge Activity: May Not Drive (for 2-3 days or while taking narcotic pain medications.) May shower in (days): 1 Lifting Restrictions: 10 lbs for 1 week Dressing / Incision Call your doctor if your incision/area has: Continuous Slow Oozing, Increased Pain/ Swelling, Increased Redness, Foul Smelling Discharge and Swelling at the incision site Call your doctor if you observe: Fever of 101 or Higher Suture Line Care: Avoid Pulling/Pushing and Avoid Pinching/Bending Cleanse incision/area with: Soap & Water Additional Dressing/Incision Instructions:: Wear tight supportive sports bra Follow Up Care Please Follow Up With: Jaylen Fan MD When: Please call to schedule 2 week follow up appointment. [phone] Test Results: Test results from this visit will be discussed in further detail at your follow-up appointment, if applicable. Discharge Plan Admission Attending Provider: Jeancarlos Garcia Primary Care Provider: Luis Alberto Zayas Consulting Providers: Jaylen Fan Discharge Orders/Prescriptions Prescriptions: New oxycodone-acetaminophen [Percocet] 5-325 mg tablet 1 tab PO Q4H PRN (Reason: pain) 5 Days Qty: 20 RF: 0 No Action coenzyme Q10 [Co Q-10] 100 mg capsule 100 mg PO DAILY RF: 0 metoprolol tartrate 25 mg tablet 25 mg PO DAILY RF: 0 clopidogrel 75 MG tablet 75 mg PO DAILY RF: 0 aspirin 81 MG tablet,chewable 81 mg PO DAILY@0800 RF: 0 buspirone 10 mg tablet 5 mg PO BID RF: 0 cholecalciferol (vitamin D3) [Vitamin D3] 125 mcg (5,000 unit) Tablet 125 mcg PO DAILY RF: 0 rosuvastatin 5 mg tablet 5 mg PO DAILY Qty: 90 RF: 3 Referrals / Follow Up: Luis Alberto Zayas MD [Primary Care Provider] - Disposition Disposition (needs filled in before D/C Order can be placed): Home, Self Care
--- NOTE | 2021-05-11 13:52 | SUR.PHASEII ---
awaiting script from pharmacy
== END 2021-05-11 23:59 | disposition home or self-care (01) ==
LOC: SDC 07:21 → AC 07:21
PROVIDERS: Surgery; PCP Family Medicine; Visit Provider Anesthesiology
PROC: (CPT 19301; principal; 2021-05-11 09:45)
DX: C50.412 Malignant neoplasm of upper-outer quadrant of left female breast (principal); F17.200 Nicotine dependence, unspecified, uncomplicated; I25.10 Atherosclerotic heart disease of native coronary artery without angina pectoris; E78.5 Hyperlipidemia, unspecified; Z17.0 Estrogen receptor positive status [ER+]; I25.2 Old myocardial infarction; I10 Essential (primary) hypertension; Z79.02 Long term (current) use of antithrombotics/antiplatelets; Z79.84 Long term (current) use of oral hypoglycemic drugs; Z79.899 Other long term (current) drug therapy; Z95.5 Presence of coronary angioplasty implant and graft; Z78.0 Asymptomatic menopausal state
CPT/HCPCS: 19083; 38500; 00400; 36415; 38792; 76098; 80048; 85027; 88305; 88307; 88331; 88341; 88342; 93005; A9541; J7120; J2405; J3490; Q9968

== ENCOUNTER 2021-06-13 08:23 | Outpatient (CLI) | payer BC, SELFPAY ==
--- NOTE | 2021-06-13 08:30 | BD_ITS ---
STUDY: DUAL ENERGY X-RAY ABSORPTIOMETRY / DXA REASON FOR EXAM: Female, 60 years old. SCREENING/PRE HORMONAL THERAPY -- MALIGNANT NEOPLASM TECHNIQUE: Bone Mineral Density (BMD) measurements of lumbar spine and bilateral hips were obtained. COMPARISON: None. FINDINGS: Lumbar Spine (L1-L4): g/cm2 (0.962) / T-score (-0.8) / Z-score (0.8) Findings are suggestive of normal bone density with a low fracture risk. Left Femur Total: g/cm2 (0.830) / T-score (-0.9) / Z-score (0.2) Left Femoral Neck: g/cm2 (0.649) / T-score (-1.8) / Z-score (-0.4) Right Femur Total: g/cm2 (0.864) / T-score (-0.6) / Z-score (0.5) Right Femoral Neck: g/cm2 (0.715) / T-score (-1.2) / Z-score (0.2) BD/Dexa Bone Density Study IMPRESSION: The patient is considered osteopenic as outlined below according to World [place] Organization (WHO) criteria with a moderate fracture risk. Reference Information: The T-score is the number of standard deviations above or below the standard which is normal for young adults at their peak bone mineral density. The World Health Organization (WHO) interprets the T-scores as follows: Above -1 Normal bone density Between -1 and -2.5 Osteopenia Equal to / or below -2.5 Osteoporosis As a practical clinical guideline, osteopenia may be graded as follows: Mild -1 through -1.5 Moderate -1.6 through -2.0 Severe -2.1 through -2.4 The Z-score is the number of standard deviations above or below age-matched controls. A Z-score of less than -1.5 would be considered abnormal. References: 1. NIH Osteoporosis and Related Bone Diseases www osteo.org 2. International Society for Clinical Densitometry www iscd.org 3. National Osteoporosis Foundation www nof.org Electronically Signed: Gerardo Barrett MD at 15:15 EST ,
--- NOTE | 2021-06-13 08:51 | RAD_ITS ---
STUDY: X-RAY CHEST REASON FOR EXAM: Female, 60 years old. Shortness of breath, history of breast CA TECHNIQUE: PA and lateral views of the chest. COMPARISON: 02/05/2016 FINDINGS: The lungs are clear and expanded. There is no demonstrated pleural abnormality. Normal size heart. Normal mediastinum and harish. Normal visualized pulmonary arteries. Normal visualized aortic arch and descending thoracic aorta. Normal visualized thoracic spine. Normal visualized ribs, clavicles, and shoulders. There is no demonstrated abnormality of the visualized soft tissue structures of the upper abdomen. RAD/Chest PA and Lateral IMPRESSION: Normal x-ray examination of the chest. Electronically Signed: Go Mcdaniels MD at 15:13 EST ,
== END 2021-06-13 23:59 | disposition home or self-care (01) ==
LOC: OPBD 08:49 → RAO 09:09
PROVIDERS: PCP Family Medicine; Referring Provider Internal Medicine Medical Oncology; Visit Provider Internal Medicine Medical Oncology
DX: R06.02 Shortness of breath (principal); Z85.3 Personal history of malignant neoplasm of breast; M85.80 Other specified disorders of bone density and structure, unspecified site; Z78.0 Asymptomatic menopausal state
CPT/HCPCS: 71046; 77080

== ENCOUNTER → 2021-08-31 | Outpatient (CLI) | payer BC, SELFPAY ==
--- NOTE | 2021-08-31 08:38 | NM_ITS ---
CLINICAL: Female, 61 years old. BLOOD ALKALINE INCREASE, OSTEOPENIA -- HISTORY OF BREAST CANCER WHOLE BODY NUCLEAR BONE SCAN TECHNIQUE: Following the IV administration of 25.6 mCi of Tc MDP, whole body bone imaging was performed with a gamma camera following a three hour delay. COMPARISON STUDIES : NM - None. CR - Not available for review at this time. CT - Not available for review at this time. MR - Not available for review at this time. US - Not available for review at this time. FINDINGS: There is a normal concentration of radiopharmaceutical throughout the axial and appendicular skeletal system without either a focal decrease or increase in uptake. NM/Bone Scan Whole Body IMPRESSION: Normal whole body nuclear bone scan. Electronically Signed: Leonard Landa MD at 9:42 EDT ,
== END | disposition home or self-care (01) ==
LOC: NM 08:37
PROVIDERS: PCP Family Medicine; Referring Provider Internal Medicine Medical Oncology; Visit Provider Internal Medicine Medical Oncology
DX: C50.212 Malignant neoplasm of upper-inner quadrant of left female breast (principal); Z17.0 Estrogen receptor positive status [ER+]; R74.8 Abnormal levels of other serum enzymes
CPT/HCPCS: 78306; A9503

== ENCOUNTER → 2022-03-29 | Outpatient (CLI) | payer BC, SELFPAY ==
[2022-04-11 00:07] LABS: HPV Genotype 16, Aptima Negative (Negative)
[2022-04-11 14:08] LABS: HPV APTIMA, High Risk Positive (Negative); HPV Genotype 18,45 Aptima Positive (Negative)
== END | disposition home or self-care (01) ==
LOC: LABSPEC 16:19
PROVIDERS: PCP Family Medicine; Referring Provider Nurse Practitioner Women's Health; Visit Provider Nurse Practitioner Women's Health
DX: Z12.72 Encounter for screening for malignant neoplasm of vagina (principal)
CPT/HCPCS: 87624; 88175; G0145

== ENCOUNTER 2022-04-02 08:58 | Outpatient (CLI) | payer BC, SELFPAY ==
--- NOTE | 2022-04-02 09:01 | BI_ITS ---
MAMMOGRAPHY - BILATERAL DIAGNOSTIC REASON FOR EXAM: Female, 61 years old. Follow-up for left lumpectomy. PERTINENT HISTORY: Personal history of breast cancer. Sister with breast cancer. Mother with breast cancer. TECHNIQUE: Digital bilateral breast gloria (3D mammographic acquisition) in the CC and MLO projections. 2-D mediolateral oblique (MLO) and craniocaudad (CC) views of both breasts were obtained. CAD: Full Field Digital Mammography with Computer Added Detection was performed. COMPARISON: Comparison is made with prior study dated 03/31/2021. FINDINGS: Breast Composition: There are scattered areas of fibroglandular density. Since prior study, the patient underwent lumpectomy and removal of the nodular density in the deep central medial aspect of the left breast. Postoperative surgical changes are seen. Surgical clips are also seen in the left axillary region. No other significant abnormalities are identified. BI/DIAG MAMM W/CAD, BILAT IMPRESSION: Status post lumpectomy in the deep central medial aspect of the left breast with postoperative surgical changes. Surgical clips are also seen in the left axilla. One year follow-up recommended. (A) ASSESSMENT CATEGORY: BIRADS Category 2: Benign. A letter regarding these results will be sent to the patient by the facility within 30 days. Approximately 10% of breast cancers are not detected by mammography. A normal mammogram should not delay biopsy of a clinically suspicious abnormality. Electronically Signed: Gerardo Barrett MD at 10:18 EST ,
== END 2022-04-02 23:59 | disposition home or self-care (01) ==
LOC: OPBI 08:59
PROVIDERS: PCP Family Medicine; Visit Provider Student in an Organized Health Care Education/Training Program
DX: C50.919 Malignant neoplasm of unspecified site of unspecified female breast (principal); Z85.3 Personal history of malignant neoplasm of breast; Z80.3 Family history of malignant neoplasm of breast
CPT/HCPCS: 77062; 77066; G0279

== ENCOUNTER → 2022-04-05 | Outpatient (CLI) | payer BC, SELFPAY ==
--- NOTE | 2022-04-05 14:35 | US_ITS ---
STUDY: ULTRASOUND OF THE FEMALE PELVIS - COMPLETE REASON FOR EXAM: Female, 61 years old patient with tamoxifen use. LMP: Unknown. TECHNIQUE: Transabdominal and Transvaginal TECHNICAL QUALITY: Adequate. COMPARISON: None. FINDINGS: The uterus is anteverted and is in a midline position. The uterus measures 9.6 x 4.0 x 5 cm. There appear to be multiple small nabothian cysts. The endometrium measures 12.2 mm mm in thickness, and is hyperechoic. There is also fluid visible within the uterus. The endometrium is somewhat irregular and suggests invasion of the myometrium.. There is no demonstrated myometrial mass. The right ovary is visualized. The right ovary measures 2.3 x 1.4 x 1.0 cm. There are multiple follicles of the right ovary without a dominant cyst. There is no visualized right adnexal mass or complex lesion. There is normal arterial and normal venous vascularity. The left ovary is visualized. The left ovary measures 2.0 x 1.3 x 1.1 cm. There is no left ovarian cyst or ovarian mass. There is no visualized left adnexal mass or complex lesion. There is normal arterial and normal venous vascularity. There is no fluid in the cul-de-sac. The pre void volume of the bladder was 499 ml. Urinary bladder has a grossly normal appearance. Polycystic ovary disease: No. US/Pelvic (Non ) IMPRESSION: Abnormal thickening of the endometrium which has irregular contour and apparent invasion into the myometrium suggesting malignancy. There is also some fluid in endometrial cavity. Electronically Signed: Jyoti Mitchell MD at 7:20 EST ,
== END | disposition home or self-care (01) ==
LOC: US 14:34
PROVIDERS: PCP Family Medicine; Referring Provider Nurse Practitioner Women's Health; Visit Provider Nurse Practitioner Women's Health
DX: R93.49 Abnormal radiologic findings on diagnostic imaging of other urinary organs (principal); Z79.810 Long term (current) use of selective estrogen receptor modulators (SERMs); R93.89 Abnormal findings on diagnostic imaging of other specified body structures; N88.8 Other specified noninflammatory disorders of cervix uteri
CPT/HCPCS: 76830; 76856

== ENCOUNTER → 2022-04-06 | Outpatient (CLI) | payer BC, SELFPAY ==
--- NOTE | 2022-04-06 14:30 | CT_ITS ---
STUDY: LOW DOSE CT LUNG CANCER SCREENING REASON FOR EXAM: Female, 61 years old. Lung cancer screening -- 47 pk yr hx; current smoker; asymptomatic RADIATION DOSAGE (If Supplied By Facility): CTDIvol = ( 2.01 ) mGy, DLP = ( 100.72 ) mGycm TECHNIQUE: No contrast was administered. Low dose technique was utilized (average mAS-38 and kVp 120). 1.25 mm axial source images with a slice interval of 1.25-mm were reconstructed in lung windows. 2.5 mm axial source images with a slice interval of 2.5-mm were reconstructed in lung windows. 5.0 mm axial source images with a slice interval of 5.0-mm were reconstructed in soft tissue windows. COMPARISON: None. NODULES: No suspicious nodule is seen. Emphysema: Mild degree of hyperinflation. Endobronchial lesion: Unremarkable Aorta: Mild calcific plaques of the aortic arch. CORONARY ARTERIES: Coronary artery calcification is seen. Heart: Unremarkable Pulmonary artery: Unremarkable Mediastinal nodes: Unremarkable Other chest and abdominal findings: CT/Low Dose CT Lung Screening IMPRESSION: Lung-RADS category 2 - Continue annual screening with LDCT in 12 months. IMPORTANT NOTES FOR USE: ACR Lung-RADS Version 1.1 Assessment Categories Release Date: 2018 Category: Coded 0-4 bases on nodule(s) with highest degree of suspicion. Negative screen is defined as categories 1 and 2; a positive screen is defined as categories 3 and 4. Category 3 and 4A nodules that are unchanged on interval CT should be coded as category 2, and individuals returned to screening in 12 months. Category 4X: Category 3 or 4 nodules with additional imaging findings that increase the suspicion of lung cancer, such as spiculation, GGN that doubles in size in 1 year, enlarged lymph notes, etc. Category Modifiers: S (significant finding unrelated to lung cancer) Electronically Signed: Gerardo Barrett MD at 15:01 EST ,
== END | disposition home or self-care (01) ==
LOC: CT 14:29
PROVIDERS: PCP Family Medicine; Referring Provider Nurse Practitioner Family; Visit Provider Nurse Practitioner Family
DX: I70.0 Atherosclerosis of aorta (principal); I25.10 Atherosclerotic heart disease of native coronary artery without angina pectoris; Z12.2 Encounter for screening for malignant neoplasm of respiratory organs; R91.8 Other nonspecific abnormal finding of lung field; F17.200 Nicotine dependence, unspecified, uncomplicated
CPT/HCPCS: 71271

== ENCOUNTER → 2022-04-19 | Outpatient (CLI) | payer BC, SELFPAY ==
--- NOTE | 2022-04-19 | EMB_PTH ---
PATIENT: PATRICIO STREETER LOC: [facility] U#:[id number] AGE/SX: 61/F ROOM: RE04/19/[address]: [address] : 1960 BED: DIS: 04/19/2022 SPEC #: [id number] RECD: 04/19/22 16:24 STATUS: ABDULAZIZ FORD #: [id number] SHARATH: 04/19/22 00:[address]: Renea Velázquez NP DEPT: SURGICAL PATHOLOGY RECD BY: Jerry Ortiz ENTERED: 04/20/22 09:09 SP TYPE: ENDOM BX/C HELDER DR: Dr. Luis Alberto Zayas MD Tissues: Endometrium, NOS Procedures: Surgery Specimen Level IV HEADER OPERATION: Endometrial biopsy PRE-OP DIAGNOSIS: Abnormal uterine bleeding on Tamoxifen TISSUE SUBMITTED: Endometrial tissue MICROSCOPIC DIAGNOSIS Endometrium, biopsy: Strips of benign superficial glandular and squamous mucosa. AM:shakir 04/24/2022 MICROSCOPIC DESCRIPTION Slides are reviewed. GROSS DESCRIPTION Received is one container labeled with the patient's name and not further designated. The specimen consists of multiple fragments of hemorrhagic soft tissue that in aggregate measure 2.5 x 1 x 0.1 cm. The specimen is totally submitted in one cassette. / SJ:shakir 04/20/2022 TC:5 CPT: 14063
== END | disposition home or self-care (01) ==
LOC: LABSPEC 16:30
PROVIDERS: PCP Family Medicine; Visit Provider Nurse Practitioner Women's Health
DX: N93.9 Abnormal uterine and vaginal bleeding, unspecified (principal)
CPT/HCPCS: 88305

== ENCOUNTER 2022-05-29 07:03 | Day surgery (SDC) | payer BC, SELFPAY ==
[2022-05-29] VITALS (7 sets, daily range): BP systolic 115–173; BP diastolic 84–96; PULSE 57–70; RESP 16–20; TEMP 36–36.8; O2SAT 97–100; BMI 25.1
--- NOTE | 2022-05-29 | EMB_PTH ---
PATIENT: PATRICIO STREETER LOC: [facility] U#:[id number] AGE/SX: 61/F ROOM: RE05/29/[address]: Dr. Patricio Yusuf DO : 1960 BED: DIS: 05/29/2022 SPEC #: [id number] RECD: 05/29/22 11:22 STATUS: ABDULAZIZ LOGAN #: [id number] SHARATH: 05/29/22 00:[address]: Patricio Yusuf DEPT: SURGICAL PATHOLOGY RECD BY: Cas Pedraza ENTERED: 05/29/22 11:22 SP TYPE: ENDOM BX/C HELDER DR: No Primary Care Phys Tissues: Endometrium, NOS Procedures: Surgery Specimen Level IV HEADER OPERATION: Hysteroscopy, dilation and curettage PRE-OP DIAGNOSIS: Thickened endometrium TISSUE SUBMITTED: Endometrium MICROSCOPIC DIAGNOSIS Endometrial curettings: Proliferative endometrium. Fragments of benign squamous epithelium. SJ 05/30/22 COMMENT Please make reference to previous specimen [id number], endometrium biopsy with diagnosis of strips of superficial glandular and squamous mucosa. Correlation with clinical findings and appropriate follow up are necessary. MICROSCOPIC DESCRIPTION Slides are reviewed. GROSS DESCRIPTION Received in formalin is one container labeled with the patient name and designated endometrium. The specimen consists of scant fragments of berry mucoid tissue. The specimen is totally submitted in one cassette for cell block preparation. /AM:cc 05/30/2022 TC:5 CPT:
--- NOTE | 2022-05-29 07:21 | EKG12_ITS ---
Test Reason : PREE OP Blood Pressure : / mmHG Vent. Rate : 065 BPM Atrial Rate : 065 BPM P-R Int : 150 ms QRS Dur : 096 ms QT Int : 400 ms P-R-T Axes : 048 061 034 degrees QTc Int : 416 ms Normal sinus rhythm Low voltage QRS Borderline ECG No previous ECGs available Confirmed by SOTERO BA, LIUDMILA ([id number]), map editor RASHEEDA FARAH ([id number]) on 06/04/2022 12:51:37 PM Referred By: Keisha Yusuf Confirmed By:LIUDMILA BEY MD
[2022-05-29] MEDS: Lactated Ringers 1,000 ML 15 ML IV (07:43)
--- NOTE | 2022-05-29 08:24 | HP.PCM_ITS ---
History and Physical Date of Admission: 05/29/22 Intake Vital Signs ? 04/19/2214:28 05/09/2313:44 05/09/2313:44 Height 5 ft 6 in 5 ft 6 in 5 ft 6 in Weight: ? 156 lb 2 oz ? BMI ? 25.2 ? BP ? 159/103 H ? Intake Visit Reasons:?possible preop D&C per Box [employer] Required: No Is patient in pain?: No Allergies simvastatin Adverse Reaction (Verified 05/09/22 14:44) fatigue Medications aspirin 81 mg chewable tablet 81 mg PO DAILY@0800 02/05/16 [History Confirmed 05/09/22] clopidogrel 75 mg tablet 75 mg PO DAILY 02/05/16 [History Confirmed 05/09/22] coenzyme Q10 100 mg capsule (Co Q-10) 100 mg PO DAILY 03/04/19 [History Confirmed 05/09/22] metoprolol tartrate 25 mg tablet 25 mg PO DAILY 03/04/19 [History Confirmed 05/09/22] cholecalciferol (vitamin D3) 125 mcg (5,000 unit) tablet (Vitamin D3) 125 mcg PO DAILY 05/04/21 [History Confirmed 05/09/22] rosuvastatin 5 mg tablet 5 mg PO DAILY #90 tabs 10/26/21 [Rx Confirmed 05/09/22] tamoxifen 20 mg tablet 20 mg PO DAILY #90 tabs 11/22/21 [Rx Confirmed 05/09/22] tramadol 50 mg tablet 50 mg PO Q6H PRN pain #30 tabs 01/01/22 [Rx Confirmed 05/09/22] Is last menstrual period known: No Patient : No : No PFSH Medical History? Alcohol use Anxiety Atherosclerosis of coronary artery of [place] heart without angina pectoris Breast cancer of upper-outer quadrant of left female breast Cardiology follow-up encounter Chest pain Encounter for screening colonoscopy Encounter for screening for malignant neoplasm of lung in current smoker with 30 pack year history or greater Encounter for screening for malignant neoplasm of lung in patient with less than 30 pack year smoking history High cholesterol History of colon polyps History of heart attack History of ST elevation myocardial infarction (STEMI) (05/12/10) History of stress test Hyperlipidemia Hypertension Left breast mass Leg cramps Nicotine dependence Old inferior wall myocardial infarction Osteopenia Post-menopausal Right bundle branch block Smoker Tobacco abuse Use of tamoxifen (Nolvadex) Wears partial dentures Surgical History? History of cardiac catheterization History of coronary artery stent placement (05/12/10) History of left breast biopsy (~04/2021) History of partial mastectomy of left breast Family History? Mother CAD (coronary artery disease) Breast cancerSister Hypertension Breast cancer Social History? Smoking Status:? Current every day smoker tobacco type: cigarettes Tobacco: How many years used:? 40 HPI possible preop D&C per Details: PATRICIO STREETER is a 61 year old who presents for discussion about a dilation and curettage procedure. 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 (L breast cancer, invasive ductal type, grade 2, ER/ME positive, HER-2 negative, Ki-67 12%) She is? Status post left lumpectomy and left axillary sentinel node biopsy, tumor size 1.7 cm, margins negative, sentinel node 1 is negative.? Pathologic stage pT1c pN0(sn).? Prognostic stage stage IA. Per oncology her Oncotype DX recurrence score 19, and did not require chemotherapy and hormonal therapy was initiated.? She finished? adjuvant Radiation therapy on 07/24/2021 and it appears that she was offered anastrazole +, but declined due to dental problems. An endometrial biopsy was performed by Renea Velázquez on 04/20/22 and was benign, however she continues to feel nervous about the thickened endometrium and is requesting a D&C or hysterectomy. History ? ? ? 1 ? Elective abortions ? Hx Para ? ? ? 1 ? Spontaneous abortions ? Hx # Term Pregnancies ? ? ? 1 ? Ectopic pregnancies ? Hx # Pregnancies ? Multiple births ? # of living children ? Past Pregnancies Del. Date Name GA/Weeks Outcome Route Bth Weight Gen Labor Lgth Anesthesia Del Locatn Provider FOB 11/17/89 Je[facility] ? ROS Const ROS Unobtainable: All systems reviewed & are unremarkable except as noted in H Resp Resp: Reports system reviewed and no additional complaints, except as documented; Denies cough GI GI: Reports as per HPI Psych Psych: Reports system reviewed and no additional complaints, except as documented Exam Const General: cooperative, healthy appearing, comfortable and no acute distress Resp Effort & Inspection: normal respiratory effort Skin General: no rashes or lesions noted Psych Appearance: grossly normal Speech and Movement: speech and movement normal Coding Level of Care Code Off vis,est,level 4 Diagnoses Thickened endometrium? R93.89 Breast cancer? C50.212; Z17.0 ? ? ? Breast location: upper inner quadrant of breast ? ? ? Estrogen receptor status: positive ? ? ? Patient sex: female ? ? ? Laterality: left Assessment and Plan Assessment and Plan (1) Thickened endometrium: ?Status:?Acute ?Comment: EMB pending. (2) Breast cancer: ?Status:?Acute ?Qualifiers: ?Breast location:?upper inner quadrant of breast??Estrogen receptor status:?positive??Patient sex:?female??Laterality:?left? Qualified Code(s):? C50.212 - Malignant neoplasm of upper-inner quadrant of left female breast; Z17.0 - Estrogen receptor positive status [ER+] ?Comment: L breast cancer, invasive ductal type, grade 2, ER/ME positive, HER-2 negative, Ki-67 12%. Status post left lumpectomy and left axillary sentinel node biopsy, tumor size 1.7 cm, margins negative, sentinel node 1 is negative.? Pathologic stage pT1c pN0(sn).? Prognostic stage stage IA. Oncotype DX recurrence score 19, no benefit from chemotherapy so hormonal therapy is appropriate. Osteopenia. Finished? adjuvant Radiation therapy on 07/24/2021. Elected tamoxifen versus AI plus denosumab due to dental problems. Plan plan for a D&C with hysteroscopy to get a full picture of the lining of the uterus. Will inquire about Raloxifene from oncology if this may be an option to avoid stimulation to the endometrium After discussing the patient's diagnosis and treatment plan options, patient wishes to proceed with surgical management.? I have discussed with the patient the risks, benefits, and alternatives of the procedure which include but are not limited to risks of anesthesia, bleeding, infection, possible damage to bowel, bladder, or surrounding vasculature which could lead to additional surgery to evaluate any complications.? Patient agrees to procedure and wishes to proceed.? ACOG/uptodate references given for additional information regarding procedure. ?
--- NOTE | 2022-05-29 08:31 | DCINST_ITS ---
Discharge Instructions Diet Discharge Diet: No restrictions Activity Discharge Activity: Return to Normal Activity, May Shower and May Take a Tub Bath (after 1 week) May resume sexual activity in: 1-2 weeks Weight Bearing Status: Weight bearing as tolerated Lifting Restrictions: none Dressing / Incision Call your doctor if you observe: Fever of 101 or Higher, Using more than 1 pad per hour, Shortness of breath and Uncontrolled pain Follow Up Care Please Follow Up With: Keisha Yusuf DO When: Call [phone] to schedule appointment. Test Results: Test results from this visit will be discussed in further detail at your follow- up appointment, if applicable. Discharge Plan Admission Primary Reason for Your Visit: dilation and curettage Attending Provider: Keisha Yusuf Primary Care Provider: Dacia Leos Primary Discharge Orders/Prescriptions Prescriptions: New oxycodone-acetaminophen [Percocet] 5-325 mg tablet 1 tab PO Q4H PRN (Reason: pain) 3 Days Qty: 10 0RF Rx Instructions: 1-2 tabs q 4 hrs as needed for pain Continued coenzyme Q10 [Co Q-10] 100 mg capsule 100 mg PO DAILY metoprolol tartrate 25 mg tablet 25 mg PO DAILY tramadol 50 mg tablet 50 mg PO Q6H PRN (Reason: pain) Qty: 30 0RF Rx Instructions: take one tab PO q6 hours prn pain tamoxifen 20 mg tablet 20 mg PO DAILY Qty: 90 1RF clopidogrel 75 MG tablet 75 mg PO DAILY Label Comments: antiplatelet aspirin 81 MG tablet,chewable 81 mg PO DAILY@0800 Label Comments: heart health cholecalciferol (vitamin D3) [Vitamin D3] 125 mcg (5,000 unit) Tablet 125 mcg PO DAILY rosuvastatin 5 mg tablet 5 mg PO DAILY Qty: 90 3RF Referrals / Follow Up: Care Physician,Dacia Primary [Primary Care Provider] - Disposition Disposition (needs filled in before D/C Order can be placed): Home, Self Care
--- NOTE | 2022-05-29 08:34 | PCM.OP.BLANK ---
Operative Report Date of Procedure: 05/29/22 preoperative diagnosis: postmenopausal bleeding on tamoxifen Postoperative diagnosis:postmenopausal bleeding on tamoxifen procedure: hysteroscopy dilation and curettage Surgeon: Dr. Keisha Yusuf DO EBL: minimal urine output:0cc findings: atrophic appearing uterus specimens removed: endometrial curettings Details of the procedure: Patient was prepped and draped in a normal sterile fashion under MAC anesthesia. A weighted speculum was placed in the vagina and the anterior lip of the cervix was grasped with a single-tooth tenaculum. A paracervical block was placed with 1% lidocaine. Cervix was progressively dilated to allow passage of a 5 mm hysteroscope. The lining was fully visualized and noted to41 have an atrophic appearing lining . Uterine sounded to 8 cm. Curettage was performed and specimen was sent to pathology. All instruments were removed from the vagina and excellent hemostasis was noted. Patient was awoken and taken to recovery in stable condition. Procedures Urinary/Genital 52xxx-59xxx: 14205 Hysteroscopy, EMC,Polypectomy Multi Select Codes Urinary/Genital Urinary/Genital CPT Codes: 92589 Hysteroscopy,EMC, Polypectomy
[2022-05-29] MEDS: Lidocaine 1% (30 ml sdv) 30 ML Vial (08:41)
== END 2022-05-29 10:24 | disposition home or self-care (01) ==
LOC: SDC 07:05 → AC 07:05
PROVIDERS: Referring Provider Obstetrics & Gynecology; Visit Provider Obstetrics & Gynecology
PROC: 0UDB8ZZ Extraction of Endometrium, Via Natural or Artificial Opening Endoscopic (ICD-10-PCS; CPT 58558; principal; 2022-05-29 08:15)
DX: N95.0 Postmenopausal bleeding (principal); C50.212 Malignant neoplasm of upper-inner quadrant of left female breast; Z80.3 Family history of malignant neoplasm of breast; M85.80 Other specified disorders of bone density and structure, unspecified site; N85.8 Other specified noninflammatory disorders of uterus; Z17.0 Estrogen receptor positive status [ER+]; Z92.3 Personal history of irradiation; F17.210 Nicotine dependence, cigarettes, uncomplicated; I25.10 Atherosclerotic heart disease of native coronary artery without angina pectoris; Z86.010 Personal history of colon polyps; I25.2 Old myocardial infarction; I10 Essential (primary) hypertension
CPT/HCPCS: 58558; 00952; 86850; 86900; 86901; 88305; 93005; J7120; J2405

== ENCOUNTER → 2022-12-12 | Outpatient (CLI) | payer OTHER, SELFPAY | END | disposition home or self-care (01) | PROVIDERS: Referring Provider Nurse Practitioner Women's Health; Visit Provider Nurse Practitioner Women's Health | DX: N89.8 Other specified noninflammatory disorders of vagina (principal) | CPT/HCPCS: 87070; 87205 ==

== ENCOUNTER → 2023-01-17 | Outpatient (CLI) | payer OTHER, SELFPAY ==
[2023-01-17 16:50] LABS: Absolute Lymphocyte Count 1.99 X10^3/uL (0.83-4.51); Absolute Neutrophil Count 3.8 X10^3/uL (2.0-7.7); Basophil# 0.06 X10^3/uL; Basophil% 0.9 % (0-1); Eosinophil# 0.15 X10^3/uL; Eosinophils% 2.2 % (0-5); Hematocrit 46.7 % (37-47); Hemoglobin 15.2 g/dL (12.0-15.0); Lymphocyte # 1.99 X10^3/ul (0.83-4.51); Lymphocyte % 29.8 % (19-41); Mean Corp Hgb Conc 32.5 g/dL (32-36); Mean Corpuscular Hgb 31.7 pg (27.0-32.0); Mean Corpuscular Volume 97.5 fL (81-99); Mean Platelet Vol. 11.4 fl (6.2-12.0); Monocyte# 0.65 X10^3/uL; Monocyte% 9.7 % (0-10); NRBC Flagged by Analyzer 0 % (0-5); Neutrophil # 3.78 X10^3/uL (2.7-7.7); Neutrophil % 56.8 % (47-70); Platelet Count 183 K/mm3 (150-450); RBC Distribution Width CV 13.3 % (11.6-14.6); RBC Distribution Width SD 48.3 fl (35.1-43.9); Red Blood Count 4.79 M/mm3 (4.2-5.4); White Blood Count 6.7 K/mm3 (4.4-11.0)
[2023-01-17 17:19] LABS: ALB/GLOB Ratio 1.3 RATIO (0.9-2.4); AST(SGOT) 22 U/L (15-37); Alanine Aminotransfer ALT/SGPT 30 U/L (13-56); Albumin, Serum 3.6 g/dL (3.2-5.0); Alkaline Phosphatase 119 U/L (45-117); Anion Gap 2 (5-15); BUN 21 mg/dL (7-18); BUN/Creat Ratio 27.9 RATIO (10-20); Calcium,Total 9.2 mg/dL (8.5-10.1); Chloride 110 mmol/L (98-107); Cholesterol 141 mg/dL (200); Creatinine, Serum 0.75 mg/dL (0.55-1.02); EST Glomerular Filtration Rate 82 mL/min (>60); Est Glom Filt Rate - Afr Amer 99 mL/min (>60); Globulin 2.7 g/dL (2.2-4.2); Glucose 91 mg/dL (74-106); High Density Lipoprotein 46 mg/dL; Potassium 3.9 mmol/L (3.5-5.1); Protein, Total 6.3 g/dL (6.4-8.2); Sodium Level 139 mmol/L (136-145); Triglycerides 206 mg/dL; Very Low Density Lipoprotein 41 mg/dL (5-40)
== END | disposition home or self-care (01) ==
LOC: BIMLAB 15:46
PROVIDERS: PCP Internal Medicine; Referring Provider Internal Medicine; Visit Provider Internal Medicine
DX: I10 Essential (primary) hypertension (principal)
CPT/HCPCS: 36415; 80053; 80061; 85025

== ENCOUNTER → 2023-01-25 | Outpatient (CLI) | payer OTHER, SELFPAY ==
--- NOTE | 2023-01-25 14:45 | RAD_ITS ---
STUDY: X-RAY - UNILATERAL RIBS ( RIGHT ) REASON FOR EXAM: Female, 62 years old. Right-sided rib pain TECHNIQUE: 5 view(s) of the ribs. COMPARISON: None. FINDINGS: Normal visualized ribs without a demonstrated fracture. The visualized lung is clear and expanded. RAD/Ribs Unil 2V No CXR IMPRESSION: Normal x-ray examination of the ribs. Electronically Signed: Gerardo Barrett MD at 15:09 EDT ,
== END | disposition home or self-care (01) ==
LOC: MTRAD 14:44
PROVIDERS: PCP Internal Medicine; Referring Provider Physician Assistant Surgical; Visit Provider Physician Assistant Surgical
DX: S20.211A Contusion of right front wall of thorax, initial encounter (principal)
CPT/HCPCS: 71100

== ENCOUNTER → 2023-04-03 | Outpatient (CLI) | payer OTHER, SELFPAY ==
--- NOTE | 2023-04-03 14:30 | BI_ITS ---
MAMMOGRAPHY - BILATERAL SCREENING REASON FOR EXAM: Female, 62 years old. Routine annual screening examination. PERTINENT HISTORY: Personal history of breast cancer. Prior left lumpectomy with chemotherapy and radiation therapy TECHNIQUE: Digital bilateral breast brooke (3D mammographic acquisition) in the CC and MLO projections. 2-D mediolateral oblique (MLO) and craniocaudad (CC) views of both breasts were obtained. CAD: Full Field Digital Mammography with Computer Added Detection was performed. COMPARISON: Comparison is made with prior study dated March 31, 2021 and April 02, 2022. FINDINGS: Breast Composition: The breasts are heterogeneously dense, which may obscure small masses. There are no dominant masses or suspicious calcifications. The patient is status post lumpectomy in the deep central medial aspect of the left breast with resultant postoperative scarring and breast deformity. This is unchanged. No other significant abnormalities are identified. There has been no significant change since the prior study. BI/SCRN MAMM (CAD)W/BROOKE BILAT IMPRESSION: Stable bilateral screening mammogram. Yearly follow-up mammogram recommended. (A) ASSESSMENT CATEGORY: BIRADS Category 2: Benign. A letter regarding these results will be sent to the patient by the facility within 30 days. Approximately 10% of breast cancers are not detected by mammography. A normal mammogram should not delay biopsy of a clinically suspicious abnormality. [id number] Electronically Signed: Gerardo Barrett MD at 15:36 EST ,
== END | disposition home or self-care (01) ==
LOC: OPBI 14:28
PROVIDERS: PCP Internal Medicine; Referring Provider Student in an Organized Health Care Education/Training Program; Visit Provider Student in an Organized Health Care Education/Training Program
DX: Z12.31 Encounter for screening mammogram for malignant neoplasm of breast (principal); C50.919 Malignant neoplasm of unspecified site of unspecified female breast; Z92.21 Personal history of antineoplastic chemotherapy
CPT/HCPCS: 77063; 77067

== ENCOUNTER → 2023-04-08 | Outpatient (CLI) | payer OTHER, SELFPAY ==
--- NOTE | 2023-04-08 14:29 | US_ITS ---
INDICATION: history of thickened endometrium EXAMINATION: Ultrasound US Pelvis Non OB Complete With Transvaginal Imaging TECHNIQUE: Transabdominal and transvaginal pelvic ultrasound was performed. Grayscale, spectral waveform, and color flow Doppler evaluation of the adnexa. COMPARISON: FINDINGS: UTERUS: Anteverted. The uterus measures 9.2 x 4.8 x 3.7 cm. There is no uterine mass. The endometrial stripe measures 8 mm in diameter. There is a small cyst or focal fluid in the endometrium. Nabothian cysts. RIGHT OVARY: 1.8 x 1.1 x 1.3 cm. Non-enlarged, normal echogenicity. There is normal arterial inflow and venous outflow present in the right ovary. LEFT OVARY: 1.8 x 0.7 x 0.9 cm. Non-enlarged, normal echogenicity. There is normal arterial inflow and venous outflow present in the left ovary. FREE FLUID: None. US/Pelvic w/ Transvaginal IMPRESSION: There is a small cyst or focal fluid in the endometrium. Nabothian cysts. Electronically Signed: Sheng Amaro DO at 19:25 EST Reading Location ID and State: [id number] / [place] Tel [phone], Service support ,
== END | disposition home or self-care (01) ==
LOC: US 14:28
PROVIDERS: PCP Internal Medicine; Referring Provider Nurse Practitioner Women's Health; Visit Provider Nurse Practitioner Women's Health
DX: R93.89 Abnormal findings on diagnostic imaging of other specified body structures (principal); Z79.810 Long term (current) use of selective estrogen receptor modulators (SERMs)
CPT/HCPCS: 76830; 76856

== ENCOUNTER → 2023-04-24 | Outpatient (CLI) | payer OTHER, SELFPAY ==
--- NOTE | 2023-04-24 06:26 | ECHOD_ITS ---
Reason For Study: CAD Procedure This was a 2D Doppler, Color Flow transthoracic echocardiogram. Exam performed in department. Left Ventricle Normal LV size. Left ventricular systolic function is normal. The estimated ejection fraction is 60 %. Stage 1 diastolic dysfunction. No regional wall motion abnormalities noted. Right Ventricle Normal RV size. Normal systolic function. Atria Normal left atrium. Normal right atrium. Mitral Valve Normal mitral valve. Tricuspid Valve Normal tricuspid valve. Mild (1+) tricuspid valve insufficiency. Pulmonary artery systolic pressure is 30 mmHg. Aortic Valve Normal aortic valve. Trisinus/trileaflet aortic valve. Pulmonic Valve Normal pulmonic valve. Great Vessels Normal aortic root. The pulmonary artery is normal size. Inferior vena cava collapse with sniff. Pericardium/Pleural No pericardial effusion. MMode/2D Measurements & Calculations LVIDd: 4.0 cm IVSd: 1.00 cm Ao root diam: 3.2 cm LVIDs: 2.4 cm LVPWd: 0.90 cm RVDd: 3.4 cm FS: 39.9 % LAV(MOD-bp): 22.7 ml LVAd ap4: 21.3 cm2 SV(MOD-sp4): 34.2 ml LAV(MOD-bp) Indexed: 12.8 ml/m2 LVLd ap4: 7.5 cm LAV(MOD-sp2): 32.9 ml EDV(MOD-sp4): 50.1 ml LAV(MOD-sp4): 16.9 ml EDV(sp4-el): 51.4 ml LVAs ap4: 10.5 cm2 LVLs ap4: 6.0 cm ESV(MOD-sp4): 16.0 ml ESV(sp4-el): 15.7 ml EF(MOD-sp4): 68.1 % EF(sp4-el): 69.6 % SV(sp4-el): 35.8 ml LA A4 area: 10.0 cm2 LA dimension(2D): 3.1 cm RA A4 area: 15.0 cm2 TAPSE: 2.5 cm Time Measurements MV dec time: 0.23 sec Doppler Measurements & Calculations MV E max tan: 69.0 cm/sec Lat Peak E' Tan: 6.2 cm/sec Med Peak E' Tan: 5.4 cm/sec MV A max tan: 74.5 cm/sec E/E' lat: 11.1 E/E' med: 12.8 MV E/A: 0.93 Ao V2 max: 145.0 cm/sec LV V1 max: 124.8 cm/sec MV dec slope: 295.9 cm/sec2 Ao max P.4 mmHg LV V1 max P.2 mmHg Ao V2 mean: 103.6 cm/sec LV V1 mean P.9 mmHg Ao mean P.7 mmHg LV V1 mean: 78.8 cm/sec Ao V2 VTI: 32.7 cm LV V1 VTI: 27.9 cm AV (velocity ratio): 0.85 PA V2 max: 72.9 cm/sec TR max tan: 253.1 cm/sec TR max P.6 mmHg ECHO/Echo Complete Interpretation Summary Normal LV size. Left ventricular systolic function is normal. The estimated ejection fraction is 60 %. Stage 1 diastolic dysfunction. Structurally normal valves. Ordering Physician: Francisco Javier Choe Referring Physician: Arnoldo Marcus Performed By: Zahira Deng, RDCS, RVT
--- OUTSIDE RECORDS SUMMARY | 2023-04-24 06:27 | XMS RPT_ITS | CCD ---
Author Name Unknown Address [address] [place] [address] Organization [facility] Care Team Providers Care Sex Therapist Name Role Phone ROGELIO, S L Unavailable Unavailable ROGELIO, S L Unavailable Unavailable OGDEN, CHANDLER Unavailable Unavailable ROGELIO, S L Unavailable Unavailable Allergies Allergy Classification Reported Allergen(s) Allergy Type Date of Onset Reaction(s) Facility (1 source) NO KNOWN DRUG ALLERG; Translations: [NO KNOWN DRUG ALLERG] Propensity to adverse reactions (disorder) [facility] Repository Results Test Name Value Interpretation Reference Range Facil ity Encounters Encounter Date Encounter Type Care Provider Facility Start: 05-12-2010 End: 05-15-2010 Evaluation and management of inpatient S L ROGELIO Facility:[facility] Payers Date Payer Category Payer Policy ID Unknown Summary Purpose Family History No Family History Records FoundNo Family History Records Found Advance Directives No Advanced Directives Records FoundNo Advanced Directives Records Found Additional Source Comments INFORMATION SOURCE (unrecogn ized section and content) DATE CREATED AUTHOR AUTHOR'S ISIAH ATBILL 12/08/2019 [facility] FOR RECORDS PERTAINING TO PATIENTS WHO ARE OR HAVE BEEN ENROLLED IN A CHEMICAL DEPENDENCY/SUBSTANCEABUSE PROGRAM, SOME INFORMATION MAY BE OMITTED. This clinical summary was aggregated from multiple sources. Caution should be exercised in using it in the provision of clinical care. This summary normalizes information from multiple sources, and as a consequence, information in this document may materially change the coding, format and clinical context of patient data. In addition, data may be omitted in some cases. CLINICAL DECISIONS SHOULD BE BASED ON THE PRIMARY CLINICAL RECORDS. [employer] provides no warranty or guarantee of the accuracy or completeness of information in this document.
--- NOTE | 2023-04-24 08:40 | STRESSREP_ITS ---
Stress Test Report Exercise myocardial perfusion stress test. 62-year-old lady with a history of coronary disease and chest pain Stress protocol: Resting EKG demonstrates normal sinus rhythm with a rate of 60 bpm resting blood pressure is 136/68 mmHg. The patient exercised according to the regular Kendell protocol for a total duration of 9 minutes attaining a maximum heart rate of 131 bpm which was 83% of maximum predicted heart rate; the maximum workload was 10.1 metabolic equivalents. At rest there were no ST or T wave changes noted to suggest ischemia and at peak exercise upsloping ST changes only were noted which did not meet the criteria for ischemia. No clinical angina was noted the test was terminated due to the target heart rate being achieved/fatigue. The peak blood pressure was 168/94 mmHg. Rate-pressure product was 21,200. Myocardial perfusion protocol. 11.1 mCi of technetium 99m sestamibi was injected at rest. The patient exercise d according to regular Kendell protocol for total duration of 9 minutes and at peak exercise 33.3 mCi of technetium 99m sestamibi was injected stress images were obtained stress and rest images were reconstructed in comparing the short axis vertical long and horizontal long axis. Gated images were also obtained. Perfusion SPECT analysis: Review of the stress images demonstrate normal uptake of tracer noted in all areas of the myocardium. The resting images similarly demonstrate normal uptake of tracer noted in all areas of the myocardium. No areas of reversibility are noted to suggest ischemia no previous infarct was noted. Gated SPECT analysis: The gated ejection fraction is 83%. Conclusion: Normal exercise myocardial perfusion stress test at a high workload Preserved ejection fraction.
== END | disposition home or self-care (01) ==
LOC: CVS 06:25
PROVIDERS: PCP Internal Medicine; Referring Provider Internal Medicine Cardiovascular Disease; Visit Provider Internal Medicine Cardiovascular Disease
DX: I25.10 Atherosclerotic heart disease of native coronary artery without angina pectoris (principal)
CPT/HCPCS: 78452; 93017; 93306; A9500; A4216

== ENCOUNTER → 2023-09-10 | Outpatient (CLI) | payer MEDICARE, SELFPAY ==
--- NOTE | 2023-09-10 08:31 | BD_ITS ---
STUDY: DUAL ENERGY X-RAY ABSORPTIOMETRY / DXA REASON FOR EXAM: Female, 63 years old. Post Menopausal TECHNIQUE: Bone Mineral Density (BMD) measurements of lumbar spine and bilateral hips were obtained. COMPARISON: Comparison is made with prior examination dated June 13, 2021. FINDINGS: Lumbar Spine (L1-L4): g/cm2 (0.966) / T-score (-0.8) / Z-score (1.0) Findings are suggestive of normal bone density with a low fracture risk. Left Femur Total: g/cm2 (0.815) / T-score (-1.0) / Z-score (0.2) Left Femoral Neck: g/cm2 (0.655) / T-score (-1.7) / Z-score (-0.2) Right Femur Total: g/cm2 (0.852) / T-score (-0.7) / Z-score (0.5) Right Femoral Neck: g/cm2 (0.725) / T-score (-1.1) / Z-score (0.4) The T-Scores on the most recent prior examination were: Lumbar Spine (L1-L4): There has been improvement of bone density since the previous examination. Left Femur Total: which represents a worsening of 1.8%. Right Femur Total: which represents a worsening of 1.4%. BD/Dexa Bone Density Study IMPRESSION: The patient is considered osteopenic as outlined below according to World [place] Organization (WHO) criteria with a moderate fracture risk. There has been worsening of bone density since the previous examination. Reference Information: The T-score is the number of standard deviations above or below the standard which is normal for young adults at their peak bone mineral density. The World Health Organization (WHO) interprets the T-scores as follows: Above -1 Normal bone density Between -1 and -2.5 Osteopenia Equal to / or below -2.5 Osteoporosis As a practical clinical guideline, osteopenia may be graded as follows: Mild -1 through -1.5 Moderate -1.6 through -2.0 Severe -2.1 through -2.4 The Z-score is the number of standard deviations above or below age-matched controls. A Z-score of less than -1.5 would be considered abnormal. References: 1. NIH Osteoporosis and Related Bone Diseases www osteo.org 2. International Society for Clinical Densitometry www iscd.org 3. National Osteoporosis Foundation www nof.org Electronically Signed: Gerardo Barrett MD at 9:54 EDT ,
== END | disposition home or self-care (01) ==
PROVIDERS: PCP Internal Medicine; Referring Provider Internal Medicine; Visit Provider Internal Medicine
DX: Z78.0 Asymptomatic menopausal state (principal)
CPT/HCPCS: 77080

== ENCOUNTER → 2024-04-06 | Outpatient (CLI) | payer MEDICARE, OTHER, SELFPAY ==
--- NOTE | 2024-04-06 09:14 | BI_ITS ---
MAMMOGRAPHY - BILATERAL SCREENING REASON FOR EXAM: Female, 63 years old. Routine annual screening examination. PERTINENT HISTORY: Personal history of breast cancer. Prior left lumpectomy with radiation treatment. Sister with breast cancer. Mother with breast cancer. TECHNIQUE: Digital bilateral breast brooke (3D mammographic acquisition) in the CC and MLO projections. 2-D mediolateral oblique (MLO) and craniocaudad (CC) views of both breasts were obtained. CAD: Full Field Digital Mammography with Computer Added Detection was performed. COMPARISON: Comparison is made with prior study April 03, 2023 and April 02, 2022. FINDINGS: Breast Composition: The breasts are heterogeneously dense, which may obscure small masses. There are no dominant masses or suspicious calcifications. Once again, the patient is status post lumpectomy in the deep central medial aspect of the left breast with resultant postoperative scarring and breast deformity. Surgical clips are also seen in the left axilla. No other significant abnormalities are identified. There has been no significant change since the prior study. BI/SCRN MAMM (CAD)W/BROOKE BILAT IMPRESSION: Stable bilateral screening mammogram. Yearly follow-up mammogram recommended. (A) ASSESSMENT CATEGORY: BIRADS Category 2: Benign. A letter regarding these results will be sent to the patient by the facility within 30 days. Approximately 10% of breast cancers are not detected by mammography. A normal mammogram should not delay biopsy of a clinically suspicious abnormality. [id number] Electronically Signed: Gerardo Barrett MD at 10:04 EST ,
== END | disposition home or self-care (01) ==
LOC: OPBI 09:13
PROVIDERS: PCP Internal Medicine; Referring Provider Student in an Organized Health Care Education/Training Program; Visit Provider Student in an Organized Health Care Education/Training Program
DX: Z12.31 Encounter for screening mammogram for malignant neoplasm of breast (principal); Z85.3 Personal history of malignant neoplasm of breast; Z80.3 Family history of malignant neoplasm of breast
CPT/HCPCS: 77063; 77067

== ENCOUNTER → 2025-01-01 | Outpatient (CLI) | payer MEDICARE, OTHER, SELFPAY ==
[2025-01-01 12:26] LABS: Hematocrit 45.8 % (37-47); Hemoglobin 15.5 g/dL (12.0-15.0); Immature Granulocytes Count 0.030 X10^3/uL (0.0-0.0); Mean Corp Hgb Conc 33.8 g/dL (32-36); Mean Corpuscular Volume 94.4 fL (81-99); Mean Platelet Vol. 11.5 fl (6.2-12.0); NRBC Flagged by Analyzer 0 % (0-5); Platelet Count 207 K/mm3 (150-450); RBC Distribution Width CV 13.5 % (11.6-14.6); RBC Distribution Width SD 47.1 fl (35.1-43.9); Red Blood Count 4.85 M/mm3 (4.2-5.4); White Blood Count 6.8 K/mm3 (4.4-11.0)
[2025-01-01 13:13] LABS: Cholesterol 127 mg/dL (<=200); Low Density Lipoprotein Calc. 47 mg/dL; Triglycerides 213 mg/dL; Very Low Density Lipoprotein 43 mg/dL (5-40); cholesterol:hdl ratio screen 3.42
[2025-01-01 13:24] LABS: AST(SGOT) 26 U/L (<=31); Alanine Aminotransfer ALT/SGPT 20 U/L (<=34); Albumin, Serum 4.1 g/dL (3.4-4.8); Alkaline Phosphatase 127 U/L (35-104); Anion Gap 10 (5-15); BUN 12 mg/dL (4-19); BUN/Creat Ratio 18.3 RATIO (10-20); Calcium,Total 9.8 mg/dL (7.6-11.0); Carbon Dioxide 24.4 mmol/L (21.0-32.0); Chloride 106 mmol/L (98-108); Globulin 2.2 g/dL (2.2-4.2); Glucose 97 mg/dL (70-99); Potassium 4.3 mmol/L (3.3-5.1)
[2025-01-01 13:56] LABS: Vitamin B12 637 pg/mL (180-914); Vitamin D,25 Hydroxy 75.7 ng/mL (30-100)
== END | disposition home or self-care (01) ==
LOC: LAB 11:05
PROVIDERS: PCP Internal Medicine; Referring Provider Internal Medicine; Visit Provider Internal Medicine
DX: E78.5 Hyperlipidemia, unspecified (principal); I10 Essential (primary) hypertension; M85.80 Other specified disorders of bone density and structure, unspecified site
CPT/HCPCS: 36415; 80053; 80061; 82306; 82607; 84439; 84443; 85025

== ENCOUNTER → 2025-04-08 | Outpatient (CLI) | payer MEDICARE, OTHER, SELFPAY ==
--- NOTE | 2025-04-08 10:30 | BI_ITS ---
EXAM: SCRN MAMM (CAD)W/BROOKE BILAT DATE: 04/08/2025 CLINICAL HISTORY: F, Age 64 y/o , H/O TREATED BREAST CANCER Personal history of breast cancer. Prior left lumpectomy with radiation treatment.. TECHNIQUE: Procedure Code: [id number] Modality: MG Procedure: SCRN MAMM (CAD)W/BROOKE BILAT COMPARISON: Prior exam(s) dated April 06, 2024.. FINDINGS: TISSUE DENSITY: The breasts are heterogeneously dense, which may obscure small masses. Bilateral Breast Mammographic Findings: No significant masses, calcifications or other abnormalities are identified. Once again, the patient is status post lumpectomy in the deep central medial aspect of the left breast. Stable resultant postoperative scarring and mild breast deformity. Surgical clips are seen in the left axilla. Stable small benign-appearing right axillary lymph nodes. No suspicious masses, areas of developing architectural distortion, or suspicious calcifications. There has been no significant interval change. BI/SCRN MAMM (CAD)W/BROOKE BILAT IMPRESSION: Stable bilateral screening mammogram. OVERALL FINAL ASSESSMENT BI-RADS 2: BENIGN RECOMMENDATION: Routine annual follow-up in 1 Year Additional Recommendation none A letter with findings and recommendations will be mailed to the patient. Reading Location: [facility]
== END | disposition home or self-care (01) ==
LOC: OPBI 10:24
PROVIDERS: PCP Internal Medicine; Referring Provider Student in an Organized Health Care Education/Training Program; Visit Provider Student in an Organized Health Care Education/Training Program
DX: Z12.31 Encounter for screening mammogram for malignant neoplasm of breast (principal)
CPT/HCPCS: 77063; 77067